=== PATIENT | male | born 1975 | race African-American/Black ===

== ENCOUNTER 2021-10-27 14:21 | Inpatient (IN) | payer MEDICAID ==
[~2021-10-27] VITALS: Ht 375.9 cm; Wt 89.8 kg
[2021-10-27] MEDS ORDERED: SODIUM CHLORIDE 0.9% 1000ML BAG (SEPSIS BOLUS) IV ONE (15:30)
[2021-10-27] MEDS ORDERED: DEXAMETHASONE 10 MG/ML VIAL IV ONE (15:30)
[2021-10-27] MEDS ORDERED: CEFTRIAXONE 1 G PREMIX 50 ML IV ONE (15:30)
[2021-10-27] MEDS ORDERED: CLINDAMYCIN 600 MG in DEXTROSE 5% WATER 50 ML IV ONE (15:30)
[2021-10-27 15:38] LABS: CLARITY URINE CLOUDY (CLEAR); COLOR URINE YELLOW (YELLOW); KETONES URINE NEGATIVE (NEGATIVE); LEUKOCYTE ESTERASE URINE NEGATIVE (NEGATIVE); NITRITE URINE NEGATIVE (NEGATIVE); OCCULT BLOOD URINE 1+ (NEGATIVE); PROTEIN URINE 2+ (NEGATIVE); SPECIFIC GRAVITY URINE 1.015 (1.005-1.030)
[2021-10-27 15:57] LABS: CHLORIDE 112 mEq/L (98-107)
[2021-10-27 15:58] LABS: HEMATOCRIT. 39.3 % (42.0-52.0); MEAN CORPUSCULAR HEMOGLOBIN 31.2 pg (28.0-32.0); MEAN PLATELET VOLUME 9.4 fl (7.4-10.4); PLATELET 138 x1000/uL (130-400); RED BLOOD CELL COUNT 4.18 mill/uL (4.7-6.1); RED CELL DISTRIBUTION WIDTH 14.8 % (11.6-14.6)
[2021-10-27 16:14] LABS: PLATELET ESTIMATE NORMAL
[2021-10-27] MEDS ORDERED: NALOXONE HCL 0.4MG/ML VIAL IV PRN (20:00)
[2021-10-27] MEDS: HYDROCODONE/ACETAMINOPHEN 10/325MG TABLET PO PRN (20:06)
[2021-10-27 23:14] VITALS: BP 131/86
[2021-10-28 03:18] VITALS: BP 131/86
[2021-10-28 04:00] VITALS: BP 133/78
[2021-10-28] MEDS ORDERED: INFLUENZA VACCINE 05/PF 0.5 ML SYRINGE IM ONE (04:45)
[2021-10-28] MEDS ORDERED: PNEUMOCOCCAL 23-VAL P-SAC VAC 0.5 ML IM ONE (04:45)
[2021-10-28] MEDS ORDERED: HYDROCODONE/ACETAMINOPHEN 5/325MG TABLET PO PRN (07:45)
[2021-10-28] MEDS ORDERED: ACETAMINOPHEN 325MG TABLET PO PRN (07:45)
[2021-10-28 08:00] VITALS: BP 116/72
[2021-10-28] MEDS ORDERED: VANCOMYCIN 2,000 MG in DEXT 5% WATER 500 ML IV SCH ×2 (10:00→15:30)
[2021-10-28] MEDS ORDERED: PIPERACILLIN/TAZOBACTAM 3.375 G in DEXTROSE 5% WATER 50 ML IV SCH ×2 (10:00→14:00)
[2021-10-28 12:00] VITALS: BP 126/79
[2021-10-28] MEDS: SODIUM CHLORIDE 0.9% 1,000 ML IV SCH (13:00)
[2021-10-28 16:00] VITALS: BP 146/73
[2021-10-28] MEDS: CEFEPIME 1,000 MG in DEXTROSE 5% WATER 50 ML IV SCH (17:01)
[2021-10-28 17:57] LABS: HEMATOCRIT. 30.9 % (42.0-52.0); HEMOGLOBIN. 10.1 g/dL (14.0-18.0); MEAN CORPUSCULAR HEMOGLOBIN 30.9 pg (28.0-32.0); MEAN CORPUSCULAR VOLUME 94.7 fL (80.0-94.0); MEAN PLATELET VOLUME 9.4 fl (7.4-10.4); PLATELET 142 x1000/uL (130-400); RED BLOOD CELL COUNT 3.26 mill/uL (4.7-6.1); RED CELL DISTRIBUTION WIDTH 15.4 % (11.6-14.6)
[2021-10-28 19:59] LABS: PLATELET ESTIMATE NORMAL
[2021-10-28 20:00] VITALS: BP 132/87
[2021-10-28] MEDS: METRONIDAZOLE 500MG TABLET PO SCH (23:25)
[2021-10-29] VITALS: BP 130/76
[2021-10-29 04:00] VITALS: BP 131/80
[2021-10-29] MEDS: METRONIDAZOLE 500MG TABLET PO SCH ×3 (05:46→22:06)
[2021-10-29 07:12] LABS: *BARBITURATES SCREEN URINE NEGATIVE (NEGATIVE); *BENZODIAZEPINES SCREEN URINE NEGATIVE (NEGATIVE); *COCAINE SCREEN URINE NEGATIVE (NEGATIVE)
[2021-10-29 07:23] LABS: *AMPHETAMINES SCREEN URINE NEGATIVE (NEGATIVE); CANNABINOID URINE SCREEN NEGATIVE (NEGATIVE); METHADONE URINE SCREEN NEGATIVE (NEGATIVE); OPIATES URINE SCREEN PRESUMTIVE POSITIVE (NEGATIVE); PHENCYCLIDINE URINE SCREEN NEGATIVE (NEGATIVE)
[2021-10-29 08:00] VITALS: BP 140/87
[2021-10-29] MEDS: SODIUM CHLORIDE 0.9% 1,000 ML IV SCH (09:00)
[2021-10-29 09:26] LABS: HEMATOCRIT. 32.2 % (42.0-52.0); HEMOGLOBIN. 10.5 g/dL (14.0-18.0); MEAN CORPUSCULAR HEMOGLOBIN 30.4 pg (28.0-32.0); MEAN CORPUSCULAR VOLUME 93.6 fL (80.0-94.0); MEAN PLATELET VOLUME 9.4 fl (7.4-10.4); PLATELET 154 x1000/uL (130-400); RED BLOOD CELL COUNT 3.44 mill/uL (4.7-6.1); RED CELL DISTRIBUTION WIDTH 15.4 % (11.6-14.6)
[2021-10-29 12:00] VITALS: BP 143/91
[2021-10-29 14:21] LABS: NUCLEATED RED BLOOD CELLS 1 /100 WBC; PLATELET ESTIMATE NORMAL
[2021-10-29 14:24] LABS: BG BASE EXCESS -7.6 mmol/L (-2.0-2.0); BG CARBOXYHEMOGLOBIN 0.3 % (0.5-1.5); BG DEOXYHEMOGLOBIN 3.4 % (0.0-5.0); BG FRACTION INSPIRED OXYGEN 21; BG HCO3 ACT 15.4 mmol/L (22.0-26.0); BG METHEMOGLOBIN 0.3 % (0.0-1.5); BG OXYGEN SATURATION 96.6 % (92.0-98.5); BG PCO2 24.3 mmHg (35.0-45.0); BG PH 7.421 (7.350-7.450); BG PO2 104.3 mmHg (75.0-100.0); BG SAMPLE SITE RIGHT BRACHIAL; BG TOTAL HEMOGLOBIN 10.4 g/dL (12.0-18.0); BG VENT MODE ROOM AIR
[2021-10-29] MEDS: CEFEPIME 1,000 MG in DEXTROSE 5% WATER 50 ML IV SCH (15:50)
[2021-10-29 16:00] VITALS: BP 142/83
[2021-10-29 20:00] VITALS: BP 113/68
[2021-10-30] VITALS: BP 132/67
[2021-10-30 04:00] VITALS: BP 133/82
[2021-10-30] MEDS: SODIUM CHLORIDE 0.9% 1,000 ML IV SCH (05:35)
[2021-10-30] MEDS: METRONIDAZOLE 500MG TABLET PO SCH ×3 (06:05→19:32)
[2021-10-30 07:54] LABS: HEMATOCRIT. 30.7 % (42.0-52.0); MEAN CORPUSCULAR HEMOGLOBIN 30.6 pg (28.0-32.0); MEAN CORPUSCULAR VOLUME 93.4 fL (80.0-94.0); MEAN PLATELET VOLUME 9.4 fl (7.4-10.4); PLATELET 148 x1000/uL (130-400); RED BLOOD CELL COUNT 3.28 mill/uL (4.7-6.1); RED CELL DISTRIBUTION WIDTH 14.9 % (11.6-14.6)
[2021-10-30 07:58] LABS: PHOSPHORUS 3.1 mg/dL (2.5-4.9)
[2021-10-30 08:03] VITALS: BP 133/78
[2021-10-30] MEDS ORDERED: DOXY100T2 MT (10:30)
[2021-10-30] MEDS ORDERED: AMOX1TAB15 MT (10:30)
[2021-10-30] MEDS ORDERED: VANCOMYCIN 1500MG in DEXTROSE 5% WATER 250ML IV SCH (11:00)
[2021-10-30 12:10] VITALS: BP 138/89
[2021-10-30 15:09] LABS: PLATELET ESTIMATE NORMAL
[2021-10-30 16:00] VITALS: BP 153/98
[2021-10-30] MEDS: CEFEPIME 1,000 MG in DEXTROSE 5% WATER 50 ML IV SCH (17:15)
[2021-10-30] MEDS: HYDROCODONE/ACETAMINOPHEN 10/325MG TABLET PO PRN (19:33)
[2021-10-30 20:00] VITALS: BP 130/80
[2021-10-31] MEDS: SODIUM CHLORIDE 0.9% 1,000 ML IV SCH ×2 (01:48→21:27)
[2021-10-31] MEDS: METRONIDAZOLE 500MG TABLET PO SCH ×3 (04:29→21:29)
[2021-10-31] MEDS: HYDROCODONE/ACETAMINOPHEN 10/325MG TABLET PO PRN ×2 (04:29→21:28)
[2021-10-31] MEDS ORDERED: SODIUM CHLORIDE 0.9% INJ 10ML FLUSH IVF ONE (07:14)
[2021-10-31] MEDS ORDERED: GENTAMICIN SULF 40MG/ML 2ML VIAL ONE (07:14)
[2021-10-31] MEDS ORDERED: POLYMYXIN B SULFATE 500000 UNITS/VIAL ONE (07:14)
[2021-10-31 07:49] LABS: HEMATOCRIT. 31.4 % (42.0-52.0); HEMOGLOBIN. 10.6 g/dL (14.0-18.0); MEAN CORPUSCULAR HEMOGLOBIN 31.4 pg (28.0-32.0); MEAN CORPUSCULAR VOLUME 92.7 fL (80.0-94.0); MEAN PLATELET VOLUME 8.7 fl (7.4-10.4); PLATELET 145 x1000/uL (130-400); RED BLOOD CELL COUNT 3.38 mill/uL (4.7-6.1)
[2021-10-31 08:00] VITALS: BP 151/96
[2021-10-31 08:14] LABS: PHOSPHORUS 3.3 mg/dL (2.5-4.9)
[2021-10-31] MEDS ORDERED: BUPIVACAINE HCL/PF 0.5% (5MG/ML) 30ML ONE (08:40)
[2021-10-31] MEDS ORDERED: LIDOCAINE HCL 1% 10 MG/ML 10ML VIAL ONE (08:40)
[2021-10-31] MEDS ORDERED: HYDROMORPHONE HCL/PF 2MG/ML (OR) ONE (08:50)
[2021-10-31] MEDS ORDERED: MIDAZOLAM HCL 5 MG/5 ML VIAL ONE (08:50)
[2021-10-31 12:00] VITALS: BP 145/83
[2021-10-31] MEDS: CEFEPIME 1,000 MG in DEXTROSE 5% WATER 50 ML IV SCH (15:40)
[2021-10-31 16:00] VITALS: BP 150/87
[2021-10-31 20:00] VITALS: BP 169/98
[2021-11-01] VITALS: BP 152/83
[2021-11-01 04:00] VITALS: BP 148/96
[2021-11-01 04:34] LABS: PLATELET ESTIMATE NORMAL
[2021-11-01] MEDS: METRONIDAZOLE 500MG TABLET PO SCH ×3 (05:22→20:39)
[2021-11-01 06:07] LABS: HEMATOCRIT. 33.3 % (42.0-52.0); HEMOGLOBIN. 11.2 g/dL (14.0-18.0); MEAN CORPUSCULAR HEMOGLOBIN 31.2 pg (28.0-32.0); MEAN CORPUSCULAR VOLUME 92.9 fL (80.0-94.0); MEAN PLATELET VOLUME 8.8 fl (7.4-10.4); PLATELET 134 x1000/uL (130-400); RED BLOOD CELL COUNT 3.59 mill/uL (4.7-6.1); RED CELL DISTRIBUTION WIDTH 14.6 % (11.6-14.6)
[2021-11-01 08:00] VITALS: BP 139/92
[2021-11-01 08:29] LABS: PHOSPHORUS 3.9 mg/dL (2.5-4.9)
[2021-11-01] MEDS: HYDROCODONE/ACETAMINOPHEN 10/325MG TABLET PO PRN ×2 (10:25→20:39)
[2021-11-01 12:14] VITALS: BP 149/99
[2021-11-01] MEDS ORDERED: VANCOMYCIN 1.25GM PMX (XELLIA) 250 ML IV NR (14:00)
[2021-11-01 16:00] VITALS: BP 135/87
[2021-11-01 16:41] LABS: PLATELET ESTIMATE NORMAL
[2021-11-01] MEDS: CEFEPIME 1,000 MG in DEXTROSE 5% WATER 50 ML IV SCH (17:01)
[2021-11-01] MEDS: SODIUM CHLORIDE 0.9% 1,000 ML IV SCH (17:01)
[2021-11-01 20:44] VITALS: BP 142/88
[2021-11-02 00:35] VITALS: BP 142/89
[2021-11-02 04:00] VITALS: BP 143/91
[2021-11-02] MEDS: METRONIDAZOLE 500MG TABLET PO SCH ×2 (05:49→15:15)
[2021-11-02] MEDS: HYDROCODONE/ACETAMINOPHEN 10/325MG TABLET PO PRN (05:55)
[2021-11-02 07:10] LABS: HEMATOCRIT. 31.5 % (42.0-52.0); HEMOGLOBIN. 10.3 g/dL (14.0-18.0); MEAN CORPUSCULAR HEMOGLOBIN 30.4 pg (28.0-32.0); MEAN CORPUSCULAR VOLUME 92.8 fL (80.0-94.0); MEAN PLATELET VOLUME 8.7 fl (7.4-10.4); PLATELET 142 x1000/uL (130-400); RED BLOOD CELL COUNT 3.39 mill/uL (4.7-6.1); RED CELL DISTRIBUTION WIDTH 14.4 % (11.6-14.6)
[2021-11-02 07:39] LABS: PHOSPHORUS 3.3 mg/dL (2.5-4.9)
[2021-11-02 08:00] VITALS: BP 143/88
[2021-11-02] MEDS: HYDROCORTISONE 2.5% CREAM 20GM TOP SCH ×2 (11:50→22:00)
[2021-11-02] MEDS: SODIUM CHLORIDE 0.9% 1,000 ML IV SCH (12:01)
[2021-11-02 12:17] VITALS: BP 143/90
[2021-11-02 15:31] VITALS: BP 137/79
[2021-11-02] MEDS: CEFEPIME 1,000 MG in DEXTROSE 5% WATER 50 ML IV SCH (16:35)
[2021-11-02 19:39] LABS: PLATELET ESTIMATE NORMAL
[2021-11-02 20:00] VITALS: BP 140/75
[2021-11-03] VITALS: BP 138/75
[2021-11-03] MEDS: METRONIDAZOLE 500MG TABLET PO SCH ×2 (00:25→05:59)
[2021-11-03 04:00] VITALS: BP 147/84
[2021-11-03 05:25] LABS: HEMATOCRIT. 32.9 % (42.0-52.0); HEMOGLOBIN. 10.8 g/dL (14.0-18.0); MEAN CORPUSCULAR HEMOGLOBIN 30.6 pg (28.0-32.0); MEAN CORPUSCULAR VOLUME 92.9 fL (80.0-94.0); MEAN PLATELET VOLUME 8.9 fl (7.4-10.4); PLATELET 151 x1000/uL (130-400); RED BLOOD CELL COUNT 3.54 mill/uL (4.7-6.1); RED CELL DISTRIBUTION WIDTH 14.1 % (11.6-14.6)
[2021-11-03 05:56] LABS: PHOSPHORUS 3.3 mg/dL (2.5-4.9)
[2021-11-03] MEDS: HYDROCORTISONE 2.5% CREAM 20GM TOP SCH (05:59)
[2021-11-03] MEDS ORDERED: LACTOBACILLUS GG CAPSULE PO SCH (09:00)
[2021-11-03 09:06] LABS: HIV 1 ABS Reactive (Non Reactive); HIV 2 ABS Indeterminate (Non Reactive); HIV SCREEN 4G Preliminary Reactive (Non Reactive); INTERPRETATION HIV-1 Positive (.)
[2021-11-03] MEDS ORDERED: VANCOMYCIN 1GM PMX (XELLIA) 200 ML IV SCH (11:00)
[2021-11-03 13:51] LABS: PLATELET ESTIMATE NORMAL
== END 2021-11-03 10:35 | disposition home or self-care (01) | DRG 720 ==
LOC: ER 14:21 → 7EST 18:17 → EDBEDREQSVC 18:25 → EDBEDREQTM 18:25 → EDBEDREQ 18:25 → ENRESERV 21:54 → 7EST 10-29 03:50
PROVIDERS: ADMIT Internal Medicine; ATTEND Internal Medicine
PROC: 0JB50ZZ Excision of Left Neck Subcutaneous Tissue and Fascia, Open Approach (ICD-10-PCS; principal; 2021-10-31)
DX: A41.9 Sepsis, unspecified organism (principal); E87.2 Acidosis; N17.9 Acute kidney failure, unspecified; E44.0 Moderate protein-calorie malnutrition; L02.11 Cutaneous abscess of neck; E87.8 Other disorders of electrolyte and fluid balance, not elsewhere classified; D64.9 Anemia, unspecified; R13.10 Dysphagia, unspecified; I12.9 Hypertensive chronic kidney disease with stage 1 through stage 4 chronic kidney disease, or unspecified chronic kidney disease; L03.221 Cellulitis of neck; Z20.822 Contact with and (suspected) exposure to COVID-19; N18.9 Chronic kidney disease, unspecified; W57.XXXA Bitten or stung by nonvenomous insect and other nonvenomous arthropods, initial encounter; J45.909 Unspecified asthma, uncomplicated; S10.96XA Insect bite of unspecified part of neck, initial encounter; R65.20 Severe sepsis without septic shock; K62.82 Dysplasia of anus; R19.7 Diarrhea, unspecified; T39.395A Adverse effect of other nonsteroidal anti-inflammatory drugs [NSAID], initial encounter; Z68.1 Body mass index [BMI] 19.9 or less, adult; Z82.49 Family history of ischemic heart disease and other diseases of the circulatory system; Y92.89 Other specified places as the place of occurrence of the external cause; Y93.89 Activity, other specified; Y99.8 Other external cause status
CPT/HCPCS: 36415; 36600; 70540; 71045; 76770; 80048; 80053; 80202; 80305; 81003; 82375; 82570; 82805; 83605; 83735; 84100; 84145; 84156; 84484; 85025; 86701; 86702; 87070; 87075; 87077; 87186; 87389; 87426; 88304; 90686; 90732; 93005; 99291; J0692; J0696; J1100; J1170; J1580; J2250; J2543; J3370; J3490; J7030; J7060